=== PATIENT | male | born 1945 | race Caucasian/White ===

== ENCOUNTER 2017-11-16 08:14 | Day surgery (SDC) | payer BC, OTHER ==
[~2017-11-16] VITALS: Ht 177.8 cm; Wt 96.6 kg
[~2017-11-16 08:14] MED LIST: ASPIRIN E.C. 8181 MG PO
[2017-11-16 08:30] VITALS: BP 131/80; PULSE 56; TEMP 97
[2017-11-16 09:45] VITALS: BP 110/70; PULSE 54; TEMP 97
[2017-11-16 10:00] VITALS: BP 108/77; PULSE 66
== END 2017-11-16 10:15 | disposition home or self-care (01) ==
LOC: SDCO 08:14
DX: Z12.11 Encounter for screening for malignant neoplasm of colon (principal); D12.0 Benign neoplasm of cecum; K57.30 Diverticulosis of large intestine without perforation or abscess without bleeding; Z86.010 Personal history of colon polyps
CPT/HCPCS: J2250; J3010; J7030

== ENCOUNTER → 2019-05-30 | Outpatient (CLI) | payer BC, OTHER | LOC: ZCOL.LAB 16:49 | DX: J01.00 Acute maxillary sinusitis, unspecified (principal) ==